=== PATIENT | female | born 1990 | race Caucasian/White ===

== ENCOUNTER 2016-10-06 06:23 | Inpatient (IN) | payer OTHER ==
[~2016-10-06] VITALS: Ht 160 cm; Wt 85.0 kg
--- NOTE | ~2016-10-06 | OR ---
PATIENT'S NAME: JENNIFER VALLEJO [facility] AGE: 25 Y [address] ROOM: [id number] [place], [place] [id number] LOCATION: [facility] ADMIT DATE: 10/06/2016 OR/Procedure Report DISCHARGE DATE: FAMILY PHYSICIAN: PHYSICIAN, NO ATTENDING PHYSICIAN: Ruth Costa SURGEON: Ruth Costa MD HOSPITAL ADMISSIONS OFFICER: DATE OF PROCEDURE: 10/06/2016 DISCRIPTION OF DELIVERY: At 2253 hours, this 25-year-old female, under epidural anesthesia delivered a viable female infant, weighing 7 pounds 7 ounces with scores of 8 and 9 at 1 and 5 minutes. Mom was brought in early this morning for induction of labor for postdates. Cytotec was placed and 4 hours later, Pitocin was started. She got to 4 cm this evening and artificial rupture of membranes produced clear fluid. She has as high as 21 milliunits of Pitocin; however, backed down to 17 milliunits, and she was able to get to complete. Delivery was via spontaneous vaginal delivery to a sterile field. There was no nuchal cord. The anterior shoulder was left shoulder and delivered fairly easily, and the body then delivered easily thereafter. The baby was bulb suctioned at delivery. The baby was stimulated and had nice cry. The cord was doubly clamped and dad cut the cord. Baby was handed to mom to do skin to skin. Cord blood was sent for analysis. Intact placenta with 3-vessel cord delivered spontaneously shortly after delivery of the baby. The patient's Pitocin was opened up and given through her bag of IV fluids. The uterus was massaged and clamped down nicely. The patient's cervix, vagina, and perineum were explored, and she did have a second-degree midline perineal laceration that was repaired in the standard fashion using 3-0 Vicryl suture. She also had a right vaginal sidewall laceration that was repaired with 3-0 Vicryl in a locking pattern and then a right labia majus laceration was repaired with a 3-0 Vicryl. She was a bit oozy especially at the introitus and therefore [id number] stitch was placed there and I felt hemostasis was much improved with that. Estimated blood loss was 350 mL. Fluids were clear throughout. Sponge counts and needle counts were correct. Both mom and baby were doing well and in stable condition. MD MJ PALACIO/lesley /[id number] d: 10/07/16 0418 t: 10/07/16 1221, OPERATIVE SUMMARY
[~2016-10-06 06:23] MED LIST: PRENATAL 1+1)(P1 TAB PO
[2016-10-06 07:39] LABS: BASOPHIL % 0.4 %; EOSINOPHIL # 0.1 K/uL (0.0-0.5); EOSINOPHIL % 1.2 %; HEMATOCRIT 34.8 % (33.0-46.0); HEMOGLOBIN 11.9 g/dL (11.0-15.0); IMMATURE GRANULOCYTE # 0.1 K/uL (0.0-0.3); IMMATURE GRANULOCYTE % 0.9 %; LYMPHOCYTE # 1.8 K/uL (0.8-4.0); LYMPHOCYTE % 18.7 %; MCH 31.6 pg (27.0-34.0); MCHC 34.2 gm/dL (32.0-36.5); MCV 92.6 fl (83.0-98.0); MONOCYTE # 0.8 K/uL (0.0-1.0); MONOCYTE % 8.9 %; MPV 10.9 fl (9.4-12.4); NEUTROPHIL # (ANC) 6.6 K/uL (1.8-7.8); NEUTROPHIL % 69.9 %; NRBC % 0 /100WBC (0-0.00); PLATELET COUNT 201 K/uL (150-450); RBC 3.76 M/uL (3.50-5.00); WBC 9.4 K/uL (4.0-11.0)
[2016-10-07 03:58] LABS: BASOPHIL % 0.1 %; EOSINOPHIL % 0.1 %; HEMATOCRIT 29.1 % (33.0-46.0); IMMATURE GRANULOCYTE # 0.1 K/uL (0.0-0.3); IMMATURE GRANULOCYTE % 0.4 %; LYMPHOCYTE # 1.5 K/uL (0.8-4.0); LYMPHOCYTE % 8.8 %; MCH 32.2 pg (27.0-34.0); MCHC 34.4 gm/dL (32.0-36.5); MCV 93.6 fl (83.0-98.0); MONOCYTE # 1.1 K/uL (0.0-1.0); MONOCYTE % 6.6 %; MPV 10.8 fl (9.4-12.4); NEUTROPHIL # (ANC) 14.2 K/uL (1.8-7.8); NRBC % 0 /100WBC (0-0.00); PLATELET COUNT 182 K/uL (150-450); RBC 3.11 M/uL (3.50-5.00)
--- NOTE | 2016-10-07 05:38 | NUR ---
VSS, fundus firm, midline, small flow, 2nd degree laceration, IV saline locked
--- NOTE | 2016-10-07 18:17 | NUR ---
Last VS: T:98.1 P:91 R: 14 BP: 137/72 Pain rating: . Last pain med: MOTRIN AT 1100. Medicated at: Effective: Breasts: , Nipples: Fundus: FIRM AND 1 FINGER DOWN Lochia: SMALL FLOW Epis/Perineum: BOTTOM OK. HAD A T-PAD TO BOTTOM. OFFERED A JACCUZZI BATH, REFUSED. HAD A MASSAGE. UP AND ABOUT IN ROOM AND HALLWAY. Voiding well: YES Significant event: . ANGELIC VILLELA TOOK PATIENT'S SALINE LOCK OUT TODAY. PLANNING HOME TOMORROW.
[2016-10-08] MEDS ORDERED: APNO TOP (11:53)
[2016-10-08] MEDS ORDERED: MOTRIN800 MG PO (11:54)
[2016-10-08] MEDS ORDERED: LANSINOH7 GM TOP (11:55)
== END 2016-10-08 14:05 | disposition disaster alternative care site (69) | DRG 775 ==
LOC: GOBM 06:23 → GOBS 06:23 → GOBM 06:24 → GOBS 20:00
PROVIDERS: ADMIT Family Medicine
PROC: 10907ZC Drainage of Amniotic Fluid, Therapeutic from Products of Conception, Via Natural or Artificial Opening (ICD-10-PCS; principal; 2016-10-06)
PROC: 0KQM0ZZ Repair Perineum Muscle, Open Approach (ICD-10-PCS; principal; 2016-10-06)
PROC: 10E0XZZ Delivery of Products of Conception, External Approach (ICD-10-PCS; principal; 2016-10-06)
PROC: 4A1HX4Z Monitoring of Products of Conception, Cardiac Electrical Activity, External Approach (ICD-10-PCS; principal; 2016-10-06)
DX: O70.1 Second degree perineal laceration during delivery (principal); Z37.0 Single live birth; Z3A.40 40 weeks gestation of pregnancy
CPT/HCPCS: J2001; J2590; J3010; J7120